=== PATIENT | male | born 1990 | race Caucasian/White ===

== ENCOUNTER → 2019-11-24 13:35 | Outpatient (CLI) | payer SELFPAY ==
--- NOTE | 2019-11-24 13:36 | DI.RAD.S_ITS ---
PROCEDURE: XR ANKLE LT MIN 3V INDICATIONS: left ankle pain TECHNIQUE: 3 views of the ankle were acquired. COMPARISON: None. FINDINGS: Bones: No fractures or dislocations. Ankle mortise is normally aligned. No suspicious bony lesions. Soft tissues: No tibiotalar joint effusion. Achilles tendon appears normal. IMPRESSION: No trauma found. Source of pain is not seen. Dictated by: Fernando Clarke M.D. on 11/24/2019 at 14:11 Approved by: Fernando Clarke M.D. on 11/24/2019 at 14:12
== END ==
PROVIDERS: Referring Provider Nurse Practitioner; Visit Provider Nurse Practitioner
DX: M25.572 Pain in left ankle and joints of left foot (principal)
CPT/HCPCS: 73610